=== PATIENT | male | born 1980 | race Two or more races ===

== ENCOUNTER 2019-01-02 12:30 | Outpatient (CLI) | payer OTHER | END 2019-01-02 23:59 | disposition home or self-care (01) | LOC: WOU 12:30 | PROVIDERS: ATTEND Podiatrist Foot & Ankle Surgery | DX: M19.92 Post-traumatic osteoarthritis, unspecified site (principal); G57.91 Unspecified mononeuropathy of right lower limb; Z87.81 Personal history of (healed) traumatic fracture; M21.41 Flat foot [pes planus] (acquired), right foot; M21.42 Flat foot [pes planus] (acquired), left foot | CPT/HCPCS: G0463 ==